=== PATIENT | female | born 1965 | race Caucasian/White ===

== ENCOUNTER 2020-08-18 18:54 | Emergency (ER) | payer MEDICAID ==
[~2020-08-18] VITALS: Ht 149.9 cm; Wt 63.6 kg
[2020-08-18 20:22] LABS: BASOPHILS % (AUTO) 0.4 % (0.0-2.0); EOSINOPHILS % (AUTO) 1.9 % (1.0-6.0); HEMATOCRIT 40.4 % (36-46); HEMOGLOBIN 13.7 g/dL (12.0-16.0); LYMPHOCYTES % (AUTO) 31.6 % (22.0-44.0); MEAN CORPUSCULAR HEMOGLOBIN 31.9 pg (26.0-34.0); MEAN CORPUSCULAR HGB CONC 33.9 G/dL (31.0-37.0); MEAN CORPUSCULAR VOLUME 94 fL (80-100); MONOCYTES # (AUTO) 0.5 K/uL (0.1-1.0); MONOCYTES % (AUTO) 8.5 % (2.0-9.0); NEUTROPHILS # (AUTO) 3.6 K/uL (1.8-7.7); NEUTROPHILS % (AUTO) 57.6 % (40.0-70.0); PLATELET COUNT (AUTO) 322 K/uL (150-450); RED BLOOD CELL COUNT(AUTO) 4.29 MIL/uL (4.00-5.20); RED CELL DISTRIBUTION WIDTH 13.5 % (11.5-14.5)
[2020-08-18 20:34] LABS: ANION GAP 7 mmol/L (8-16); CALCIUM, TOTAL 9.1 mg/dL (8.8-10.5); CARBON DIOXIDE 29 mmol/L (22-29); CHLORIDE 107 mmol/L (98-107); CREATININE 0.78 mg/dL (0.60-1.30); GLOMERULAR FILTR. RATE CALC > 60 mL/min (>60); GLUCOSE,RANDOM 95 mg/dL (70-110); POTASSIUM 4.6 mmol/L (3.5-5.1); SODIUM SERUM 143 mmol/L (136-145); UREA NITROGEN, BLOOD 15 mg/dL (7-18)
[2020-08-18 20:55] LABS: ALANINE AMINOTRANSFERASE 28 U/L (12-78); ALBUMIN 3.1 g/dL (3.4-5.0); ALKALINE PHOSPHATASE 108 U/L (46-116); ASPARTATE AMINOTRANSFERASE 21 U/L (15-37); BILIRUBIN,TOTAL 0.1 mg/dL (0.1-1.0); HCG,QUANTITATIVE 2 mIU/mL (0-6); TOTAL PROTEIN, SERUM 7.5 g/dL (6.4-8.2)
[2020-08-18 21:12] LABS: AMPHET/METH SCREEN,URINE POSITIVE (NEGATIVE); BARBITURATE SCREEN, URINE NEGATIVE (NEGATIVE); BENZODIAZEPINES SCREEN,URINE NEGATIVE (NEGATIVE); CANNABINOID SCREEN,URINE NEGATIVE (NEGATIVE); COCAINE SCREEN,URINE NEGATIVE (NEGATIVE); METHADONE SCREEN, URINE NEGATIVE (NEGATIVE); OPIATE SCREEN,URINE NEGATIVE (NEGATIVE); PHENCYCLIDINE SCREEN,URINE NEGATIVE (NEGATIVE)
[2020-08-18 22:15] VITALS: BP 122/70
== END 2020-08-18 23:19 | disposition home or self-care (01) ==
LOC: EMS 18:55
DX: F15.10 Other stimulant abuse, uncomplicated (principal)
CPT/HCPCS: 36415; 80053; 80307; 84702; 85025; 99283; G0480

== ENCOUNTER 2022-04-30 03:59 | Inpatient (IN) | payer MEDICAID ==
[~2022-04-30] VITALS: Ht 147.3 cm; Wt 53.6 kg
[2022-04-30 05:11] LABS: BASOPHILS % (AUTO) 0.7 % (0.0-2.0); EOSINOPHILS % (AUTO) 1.5 % (1.0-6.0); HEMATOCRIT 38.1 % (36-46); LYMPHOCYTES # (AUTO) 1.6 K/uL (1.0-4.8); MEAN CORPUSCULAR HEMOGLOBIN 30.9 pg (26.0-34.0); MEAN CORPUSCULAR VOLUME 91 fL (80-100); MONOCYTES # (AUTO) 0.5 K/uL (0.1-1.0); MONOCYTES % (AUTO) 7.4 % (2.0-9.0); NEUTROPHILS # (AUTO) 4.2 K/uL (1.8-7.7); NEUTROPHILS % (AUTO) 65.4 % (40.0-70.0); PLATELET COUNT (AUTO) 402 K/uL (150-450); RED BLOOD CELL COUNT(AUTO) 4.21 MIL/uL (4.00-5.20); RED CELL DISTRIBUTION WIDTH 13.9 % (11.5-14.5)
[2022-04-30 05:22] LABS: ANION GAP 7 mmol/L (8-16); CALCIUM, TOTAL 9.3 mg/dL (8.8-10.5); CARBON DIOXIDE 29 mmol/L (22-29); CHLORIDE 102 mmol/L (98-107); GLUCOSE,RANDOM 95 mg/dL (70-110); POTASSIUM 3.9 mmol/L (3.5-5.1); SODIUM SERUM 138 mmol/L (136-145); UREA NITROGEN, BLOOD 13 mg/dL (7-18)
[2022-04-30 05:24] LABS: GLOMERULAR FILTR. RATE CALC > 60 mL/min (>60)
[2022-04-30 05:33] LABS: ALANINE AMINOTRANSFERASE 29 U/L (12-78); ALBUMIN 3.6 g/dL (3.4-5.0); ASPARTATE AMINOTRANSFERASE 21 U/L (15-37); BILIRUBIN,TOTAL 0.4 mg/dL (0.1-1.0); HCG,QUANTITATIVE 1 mIU/mL (0-6); TOTAL PROTEIN, SERUM 7.8 g/dL (6.4-8.2)
[2022-04-30 05:45] LABS: ALKALINE PHOSPHATASE 99 U/L (46-116)
[2022-04-30 05:48] LABS: COVID AG,FIA SOURCE NASOPHARYNGEAL
[2022-04-30] MEDS ORDERED: HALOPERIDOL 5 MG TABLET PO ONE (09:00)
[2022-04-30] MEDS ORDERED: HALOPERIDOL LACTATE 5 MG/ML VIAL IM ONE (09:00)
[2022-04-30] MEDS ORDERED: DIAZEPAM 5 MG/ML 2 ML SYRINGE IM ONE (09:00)
[2022-04-30] MEDS ORDERED: DiphenhydrAMINE HCL 50 MG/ML VIAL IM ONE (09:00)
[2022-04-30] MEDS ORDERED: DiphenhydrAMINE HCL 25 MG CAPSULE PO ONE (09:00)
[2022-04-30] MEDS ORDERED: LORazepam 2 MG TABLET PO PRN (09:15)
[2022-04-30] MEDS ORDERED: ZOLPIDEM TARTRATE 10 MG TABLET PO PRN (09:15)
[2022-04-30] MEDS ORDERED: HALOPERIDOL 5 MG TABLET PO PRN (09:15)
[2022-04-30 20:22] VITALS: BP 104/64
[2022-05-01 08:00] VITALS: BP 110/70
[2022-05-01 21:01] VITALS: BP 101/63
[2022-05-01] MEDS ORDERED: MAG HYDROX/AL HYDROX/SIMETH ES 30 ML SUSPENSION UDCUP PO PRN (23:00)
[2022-05-01] MEDS ORDERED: DOCUSATE SODIUM 100 MG CAPSULE PO PRN (23:00)
[2022-05-01] MEDS ORDERED: ALBUTEROL SULFATE HFA 90 MCG/PUFF 8 GM INHALER IH PRN (23:00)
[2022-05-01] MEDS ORDERED: OMEPRAZOLE 20 MG CAPSULE PO PRN (23:00)
[2022-05-01] MEDS ORDERED: MAGNESIUM HYDROXIDE SUSPENSION 30 ML UDCUP PO PRN (23:00)
[2022-05-01] MEDS ORDERED: BENZOCAINE/MENTHOL LOZENGE PO PRN (23:00)
[2022-05-01] MEDS ORDERED: IBUPROFEN 600 MG TABLET PO PRN (23:00)
[2022-05-01] MEDS ORDERED: ONDANSETRON HCL 4 MG TABLET PO PRN (23:00)
[2022-05-01] MEDS ORDERED: LOPERAMIDE HCL 2 MG CAPSULE PO PRN (23:00)
[2022-05-01] MEDS ORDERED: PETROLATUM,WHITE 28 GM JELLY TP PRN (23:00)
[2022-05-01] MEDS ORDERED: ACETAMINOPHEN 325 MG TABLET PO PRN (23:00)
[2022-05-01] MEDS ORDERED: BACITRACIN 28 GM OINTMENT TP PRN (23:00)
[2022-05-01] MEDS ORDERED: CloNIDine HCL 0.1 MG TABLET PO PRN (23:00)
[2022-05-02] MEDS: DIVALPROEX SODIUM 500 MG DR TABLET PO SCH ×2 (08:51→17:00)
[2022-05-02] MEDS: LITHIUM CARBONATE 300 MG CAPSULE PO SCH ×2 (08:51→17:00)
[2022-05-02] MEDS: RisperiDONE 3 MG TABLET PO SCH ×2 (08:51→17:00)
[2022-05-02 20:29] VITALS: BP 114/67
[2022-05-03] MEDS: RisperiDONE 3 MG TABLET PO SCH ×2 (08:44→17:05)
[2022-05-03] MEDS: LITHIUM CARBONATE 300 MG CAPSULE PO SCH ×2 (08:44→17:05)
[2022-05-03] MEDS: DIVALPROEX SODIUM 500 MG DR TABLET PO SCH ×2 (08:44→17:00)
[2022-05-03 09:49] VITALS: BP 95/64
[2022-05-04 00:30] VITALS: BP 117/96
[2022-05-04] MEDS: LITHIUM CARBONATE 300 MG CAPSULE PO SCH ×2 (09:00→17:00)
[2022-05-04] MEDS: DIVALPROEX SODIUM 500 MG DR TABLET PO SCH ×2 (09:00→17:00)
[2022-05-04] MEDS: RisperiDONE 3 MG TABLET PO SCH ×2 (09:00→17:00)
[2022-05-04 09:28] VITALS: BP 146/86
[2022-05-05 00:55] VITALS: BP 127/82
[2022-05-05] MEDS: RisperiDONE 3 MG TABLET PO SCH ×2 (09:00→17:00)
[2022-05-05] MEDS: DIVALPROEX SODIUM 500 MG DR TABLET PO SCH ×2 (09:00→17:00)
[2022-05-05] MEDS: LITHIUM CARBONATE 300 MG CAPSULE PO SCH ×2 (09:00→17:00)
[2022-05-05 14:40] VITALS: BP 110/62
[2022-05-05 20:26] VITALS: BP 130/75
[2022-05-06 07:37] LABS: LITHIUM < 0.20 mmol/L (0.60-1.20)
[2022-05-06 07:51] LABS: VALPROIC ACID < 3 mcg/mL (50-100)
[2022-05-06 07:58] VITALS: BP 110/70
[2022-05-06 08:00] VITALS: BP 110/70
[2022-05-06] MEDS: LITHIUM CARBONATE 300 MG CAPSULE PO SCH ×2 (08:33→17:00)
[2022-05-06] MEDS: DIVALPROEX SODIUM 500 MG DR TABLET PO SCH ×2 (08:33→17:00)
[2022-05-06] MEDS: RisperiDONE 3 MG TABLET PO SCH ×2 (08:34→17:00)
[2022-05-06 20:20] VITALS: BP 134/78
[2022-05-07 08:24] VITALS: BP 128/72
[2022-05-07] MEDS: RisperiDONE 3 MG TABLET PO SCH ×2 (09:00→17:00)
[2022-05-07] MEDS: LITHIUM CARBONATE 300 MG CAPSULE PO SCH ×2 (09:00→17:00)
[2022-05-07] MEDS: DIVALPROEX SODIUM 500 MG DR TABLET PO SCH ×2 (09:00→17:00)
[2022-05-07 20:33] VITALS: BP 109/75
[2022-05-08 08:25] VITALS: BP 110/57
[2022-05-08] MEDS: RisperiDONE 3 MG TABLET PO SCH ×2 (08:50→16:31)
[2022-05-08] MEDS: LITHIUM CARBONATE 300 MG CAPSULE PO SCH ×2 (08:50→16:31)
[2022-05-08] MEDS: DIVALPROEX SODIUM 500 MG DR TABLET PO SCH ×2 (08:50→16:31)
[2022-05-08 09:36] LABS: GLUCOMETER DEV NAME(LOC) POC.BV
[2022-05-08 20:44] VITALS: BP 117/68
[2022-05-09 08:27] VITALS: BP 112/62
[2022-05-09] MEDS: RisperiDONE 3 MG TABLET PO SCH ×2 (08:45→17:00)
[2022-05-09] MEDS: DIVALPROEX SODIUM 500 MG DR TABLET PO SCH ×2 (08:45→17:00)
[2022-05-09] MEDS: LITHIUM CARBONATE 300 MG CAPSULE PO SCH ×2 (08:45→17:00)
[2022-05-09 20:54] VITALS: BP 123/82
[2022-05-10 08:22] VITALS: BP 106/74
[2022-05-10] MEDS: LITHIUM CARBONATE 300 MG CAPSULE PO SCH ×2 (08:27→16:45)
[2022-05-10] MEDS: RisperiDONE 3 MG TABLET PO SCH ×2 (08:27→16:45)
[2022-05-10] MEDS: DIVALPROEX SODIUM 500 MG DR TABLET PO SCH ×2 (08:27→16:45)
[2022-05-10 20:29] VITALS: BP 134/77
[2022-05-11] MEDS: LITHIUM CARBONATE 300 MG CAPSULE PO SCH ×2 (09:00→17:00)
[2022-05-11] MEDS: DIVALPROEX SODIUM 500 MG DR TABLET PO SCH ×2 (09:00→17:00)
[2022-05-11] MEDS: RisperiDONE 3 MG TABLET PO SCH ×2 (09:00→17:00)
[2022-05-11 09:26] VITALS: BP 100/63
[2022-05-11 19:46] LABS: GLUCOMETER DEV NAME(LOC) POC.BV
[2022-05-11 20:19] VITALS: BP 129/68
[2022-05-11] MEDS ORDERED: RISP3TAB63 PO (21:57)
[2022-05-12 08:41] VITALS: BP 116/61
[2022-05-12] MEDS: RisperiDONE 3 MG TABLET PO SCH (09:00)
[2022-05-12] MEDS: DIVALPROEX SODIUM 500 MG DR TABLET PO SCH (09:00)
[2022-05-12] MEDS: LITHIUM CARBONATE 300 MG CAPSULE PO SCH (09:00)
== END 2022-05-12 09:45 | disposition home or self-care (01) | DRG 750 ==
LOC: EMS 04:00 → B3A 15:01 → B2S 05-06 22:04
PROVIDERS: ADMIT Psychiatry & Neurology Psychiatry; ATTEND Psychiatry & Neurology Psychiatry
DX: F25.9 Schizoaffective disorder, unspecified (principal); F15.10 Other stimulant abuse, uncomplicated; K21.9 Gastro-esophageal reflux disease without esophagitis; F41.9 Anxiety disorder, unspecified; G47.00 Insomnia, unspecified; K59.00 Constipation, unspecified; Z20.822 Contact with and (suspected) exposure to COVID-19; F17.200 Nicotine dependence, unspecified, uncomplicated; J44.9 Chronic obstructive pulmonary disease, unspecified; Z59.00 Homelessness unspecified; Z28.310 Unvaccinated for COVID-19
CPT/HCPCS: 80053; 80164; 80178; 84702; 85025; 99285; G0480; J1200; J1630

== ENCOUNTER 2022-06-01 08:06 | Inpatient (IN) | payer MEDICAID ==
[~2022-06-01] VITALS: Ht 157.5 cm; Wt 62.7 kg
[~2022-06-01 08:06] MED LIST: RISP3TAB63 PO
[2022-06-01 11:40] LABS: BASOPHILS % (AUTO) 0.6 % (0.0-2.0); EOSINOPHILS % (AUTO) 1.1 % (1.0-6.0); HEMATOCRIT 40.4 % (36-46); HEMOGLOBIN 13.3 g/dL (12.0-16.0); LYMPHOCYTES # (AUTO) 1.7 K/uL (1.0-4.8); LYMPHOCYTES % (AUTO) 27.1 % (22.0-44.0); MEAN CORPUSCULAR HEMOGLOBIN 30.7 pg (26.0-34.0); MEAN CORPUSCULAR HGB CONC 32.8 G/dL (31.0-37.0); MEAN CORPUSCULAR VOLUME 93 fL (80-100); MONOCYTES # (AUTO) 0.5 K/uL (0.1-1.0); MONOCYTES % (AUTO) 7.3 % (2.0-9.0); NEUTROPHILS % (AUTO) 63.9 % (40.0-70.0); PLATELET COUNT (AUTO) 377 K/uL (150-450); RED BLOOD CELL COUNT(AUTO) 4.33 MIL/uL (4.00-5.20); RED CELL DISTRIBUTION WIDTH 14.6 % (11.5-14.5)
[2022-06-01 11:54] LABS: ANION GAP 5 mmol/L (8-16); CALCIUM, TOTAL 9.1 mg/dL (8.8-10.5); CARBON DIOXIDE 32 mmol/L (22-29); CHLORIDE 103 mmol/L (98-107); CREATININE 0.81 mg/dL (0.60-1.30); GLUCOSE,RANDOM 88 mg/dL (70-110); POTASSIUM 3.4 mmol/L (3.5-5.1); SODIUM SERUM 140 mmol/L (136-145); UREA NITROGEN, BLOOD 21 mg/dL (7-18)
[2022-06-01 11:55] LABS: GLOMERULAR FILTR. RATE CALC > 60 mL/min (>60)
[2022-06-01 12:00] LABS: ALANINE AMINOTRANSFERASE 31 U/L (12-78); ALBUMIN 3.8 g/dL (3.4-5.0); ALKALINE PHOSPHATASE 101 U/L (46-116); ASPARTATE AMINOTRANSFERASE 33 U/L (15-37); BILIRUBIN,TOTAL 0.6 mg/dL (0.1-1.0); TOTAL PROTEIN, SERUM 7.9 g/dL (6.4-8.2)
[2022-06-01] MEDS ORDERED: ZOLPIDEM TARTRATE 10 MG TABLET PO PRN (13:45)
[2022-06-01] MEDS ORDERED: HALOPERIDOL 5 MG TABLET PO PRN (13:45)
[2022-06-01 15:47] LABS: COVID AG,FIA SOURCE NASAL SWAB
[2022-06-02] MEDS ORDERED: LOPERAMIDE HCL 2 MG CAPSULE PO PRN (06:00)
[2022-06-02] MEDS ORDERED: ALBUTEROL SULFATE HFA 90 MCG/PUFF 8 GM INHALER IH PRN (06:00)
[2022-06-02] MEDS ORDERED: BENZOCAINE/MENTHOL LOZENGE PO PRN (06:00)
[2022-06-02] MEDS ORDERED: CloNIDine HCL 0.1 MG TABLET PO PRN (06:00)
[2022-06-02] MEDS ORDERED: DOCUSATE SODIUM 100 MG CAPSULE PO PRN (06:00)
[2022-06-02] MEDS ORDERED: IBUPROFEN 600 MG TABLET PO PRN (06:00)
[2022-06-02] MEDS ORDERED: MAG HYDROX/AL HYDROX/SIMETH ES 30 ML SUSPENSION UDCUP PO PRN (06:00)
[2022-06-02] MEDS ORDERED: ACETAMINOPHEN 325 MG TABLET PO PRN (06:00)
[2022-06-02] MEDS ORDERED: MAGNESIUM HYDROXIDE SUSPENSION 30 ML UDCUP PO PRN (06:00)
[2022-06-02] MEDS ORDERED: POTASSIUM CHLORIDE 20 MEQ ER TABLET PO ONE (06:00)
[2022-06-02] MEDS ORDERED: BACITRACIN 28 GM OINTMENT TP PRN (06:00)
[2022-06-02] MEDS ORDERED: ONDANSETRON HCL 4 MG TABLET PO PRN (06:00)
[2022-06-02] MEDS ORDERED: OMEPRAZOLE 20 MG CAPSULE PO PRN (06:00)
[2022-06-02] MEDS ORDERED: PETROLATUM,WHITE 28 GM JELLY TP PRN (06:00)
[2022-06-02 09:41] VITALS: BP 112/60
[2022-06-02 13:41] VITALS: BP 117/66
[2022-06-02] MEDS: RisperiDONE 3 MG TABLET PO SCH (17:00)
[2022-06-02] MEDS: DIVALPROEX SODIUM 500 MG DR TABLET PO SCH (17:00)
[2022-06-02] MEDS: LITHIUM CARBONATE 300 MG CAPSULE PO SCH (17:00)
[2022-06-02 17:41] VITALS: BP 100/55
[2022-06-03] MEDS: LORazepam 2 MG TABLET PO PRN (00:40)
[2022-06-03 07:56] LABS: CHOL/HDL RATIO 3.4 (3.9-5.7); POTASSIUM 4.2 mmol/L (3.5-5.1); THYROID STIMULATING HORMONE 0.85 uIU/mL (0.36-3.74)
[2022-06-03] MEDS: LITHIUM CARBONATE 300 MG CAPSULE PO SCH ×2 (08:08→17:00)
[2022-06-03] MEDS: DIVALPROEX SODIUM 500 MG DR TABLET PO SCH ×2 (08:08→17:00)
[2022-06-03] MEDS: RisperiDONE 3 MG TABLET PO SCH ×2 (08:08→17:00)
[2022-06-03 08:15] VITALS: BP 127/92
[2022-06-03 16:29] VITALS: BP 128/82
[2022-06-04] MEDS: LITHIUM CARBONATE 300 MG CAPSULE PO SCH ×2 (08:12→17:00)
[2022-06-04] MEDS: DIVALPROEX SODIUM 500 MG DR TABLET PO SCH ×2 (08:12→17:00)
[2022-06-04] MEDS: RisperiDONE 3 MG TABLET PO SCH ×2 (08:13→17:00)
[2022-06-04 10:12] VITALS: BP 127/70
[2022-06-04] MEDS ORDERED: LORazepam 2 MG/ML VIAL ONE (13:35)
[2022-06-04] MEDS ORDERED: DiphenhydrAMINE HCL 50 MG/ML VIAL ONE (13:36)
[2022-06-04] MEDS ORDERED: HALOPERIDOL LACTATE 5 MG/ML VIAL ONE (13:36)
[2022-06-04] MEDS ORDERED: HALOPERIDOL LACTATE 5 MG/ML VIAL IM ONE (14:15)
[2022-06-04] MEDS ORDERED: LORazepam 2 MG/ML VIAL IM ONE (14:15)
[2022-06-04] MEDS ORDERED: DiphenhydrAMINE HCL 50 MG/ML VIAL IM ONE (14:15)
[2022-06-05] MEDS: LITHIUM CARBONATE 300 MG CAPSULE PO SCH ×2 (08:34→16:51)
[2022-06-05] MEDS: DIVALPROEX SODIUM 500 MG DR TABLET PO SCH ×2 (08:34→16:50)
[2022-06-05] MEDS: RisperiDONE 3 MG TABLET PO SCH ×2 (08:34→16:51)
[2022-06-05 09:00] VITALS: BP 98/58
[2022-06-05] MEDS ORDERED: LORazepam 2 MG/ML VIAL ONE (16:36)
[2022-06-05] MEDS ORDERED: DiphenhydrAMINE HCL 50 MG/ML VIAL ONE (16:36)
[2022-06-05] MEDS ORDERED: HALOPERIDOL LACTATE 5 MG/ML VIAL ONE (16:37)
[2022-06-05] MEDS ORDERED: DiphenhydrAMINE HCL 50 MG/ML VIAL IM ONE (16:45)
[2022-06-05] MEDS ORDERED: HALOPERIDOL LACTATE 5 MG/ML VIAL IM ONE (16:45)
[2022-06-05] MEDS ORDERED: LORazepam 2 MG/ML VIAL IM ONE (16:45)
[2022-06-06] MEDS: LITHIUM CARBONATE 300 MG CAPSULE PO SCH ×2 (08:36→16:41)
[2022-06-06] MEDS: RisperiDONE 3 MG TABLET PO SCH ×2 (08:36→16:41)
[2022-06-06] MEDS: DIVALPROEX SODIUM 500 MG DR TABLET PO SCH ×2 (08:36→16:41)
[2022-06-06 16:32] VITALS: BP 118/75
[2022-06-07 06:38] LABS: COVID AG,FIA SOURCE NASAL SWAB
[2022-06-07] MEDS: DIVALPROEX SODIUM 500 MG DR TABLET PO SCH ×2 (08:36→17:00)
[2022-06-07] MEDS: RisperiDONE 3 MG TABLET PO SCH ×2 (08:36→17:00)
[2022-06-07] MEDS: LITHIUM CARBONATE 300 MG CAPSULE PO SCH ×2 (08:36→17:00)
[2022-06-07 08:57] LABS: LITHIUM < 0.20 mmol/L (0.60-1.20)
[2022-06-07 09:01] LABS: VALPROIC ACID < 3 mcg/mL (50-100)
[2022-06-07 09:27] VITALS: BP 138/83
[2022-06-07 16:12] VITALS: BP 129/85
[2022-06-07] MEDS: LORazepam 2 MG TABLET PO PRN (19:50)
[2022-06-08 08:21] VITALS: BP 114/80
[2022-06-08] MEDS: RisperiDONE 3 MG TABLET PO SCH ×2 (09:00→16:06)
[2022-06-08] MEDS: DIVALPROEX SODIUM 500 MG DR TABLET PO SCH ×2 (09:00→16:05)
[2022-06-08] MEDS: LITHIUM CARBONATE 300 MG CAPSULE PO SCH ×2 (09:00→16:05)
[2022-06-08 16:09] VITALS: BP 120/74
[2022-06-09] MEDS: DIVALPROEX SODIUM 500 MG DR TABLET PO SCH ×2 (08:33→16:57)
[2022-06-09] MEDS: LITHIUM CARBONATE 300 MG CAPSULE PO SCH ×2 (08:33→16:57)
[2022-06-09] MEDS: RisperiDONE 3 MG TABLET PO SCH ×2 (08:34→16:58)
[2022-06-09 08:55] VITALS: BP 108/68
[2022-06-09 16:12] VITALS: BP 112/70
[2022-06-10 08:00] VITALS: BP 132/83
[2022-06-10] MEDS: RisperiDONE 3 MG TABLET PO SCH ×2 (08:04→17:35)
[2022-06-10] MEDS: LITHIUM CARBONATE 300 MG CAPSULE PO SCH ×2 (08:04→17:35)
[2022-06-10] MEDS: DIVALPROEX SODIUM 500 MG DR TABLET PO SCH ×2 (08:05→17:35)
[2022-06-10 16:22] VITALS: BP 97/59
[2022-06-10 20:15] VITALS: BP 98/60
[2022-06-11 09:12] VITALS: BP 121/79
[2022-06-11] MEDS: LITHIUM CARBONATE 300 MG CAPSULE PO SCH ×2 (09:28→17:40)
[2022-06-11] MEDS: RisperiDONE 3 MG TABLET PO SCH ×2 (09:28→17:40)
[2022-06-11] MEDS: DIVALPROEX SODIUM 500 MG DR TABLET PO SCH ×2 (09:28→17:40)
[2022-06-11 16:11] VITALS: BP 115/65
[2022-06-12] MEDS: RisperiDONE 3 MG TABLET PO SCH ×2 (09:01→17:05)
[2022-06-12] MEDS: DIVALPROEX SODIUM 500 MG DR TABLET PO SCH ×2 (09:01→17:05)
[2022-06-12] MEDS: LITHIUM CARBONATE 300 MG CAPSULE PO SCH ×2 (09:01→17:05)
[2022-06-12 10:15] VITALS: BP 103/62
[2022-06-12 16:37] VITALS: BP 103/68
[2022-06-13] MEDS: DIVALPROEX SODIUM 500 MG DR TABLET PO SCH ×2 (07:33→16:13)
[2022-06-13] MEDS: RisperiDONE 3 MG TABLET PO SCH ×2 (07:33→16:13)
[2022-06-13] MEDS: LITHIUM CARBONATE 300 MG CAPSULE PO SCH ×2 (07:33→16:13)
[2022-06-13 09:06] VITALS: BP 106/56
[2022-06-13 16:14] VITALS: BP 124/70
[2022-06-14 01:11] LABS: COVID AG,FIA SOURCE NASAL SWAB
[2022-06-14] MEDS: LITHIUM CARBONATE 300 MG CAPSULE PO SCH ×2 (07:58→16:06)
[2022-06-14] MEDS: DIVALPROEX SODIUM 500 MG DR TABLET PO SCH ×2 (07:58→16:06)
[2022-06-14] MEDS: RisperiDONE 3 MG TABLET PO SCH ×2 (07:59→16:06)
[2022-06-14 08:44] VITALS: BP 112/72
[2022-06-14 16:40] VITALS: BP 123/77
[2022-06-15] MEDS: DIVALPROEX SODIUM 500 MG DR TABLET PO SCH ×2 (08:39→16:22)
[2022-06-15] MEDS: RisperiDONE 3 MG TABLET PO SCH ×2 (08:39→16:22)
[2022-06-15] MEDS: LITHIUM CARBONATE 300 MG CAPSULE PO SCH ×2 (08:39→16:22)
[2022-06-15 08:53] VITALS: BP 99/61
[2022-06-15 16:00] VITALS: BP 95/55
[2022-06-16 08:17] VITALS: BP 115/70
[2022-06-16] MEDS: LITHIUM CARBONATE 300 MG CAPSULE PO SCH ×2 (08:21→15:43)
[2022-06-16] MEDS: RisperiDONE 3 MG TABLET PO SCH ×2 (08:21→15:43)
[2022-06-16] MEDS: DIVALPROEX SODIUM 500 MG DR TABLET PO SCH ×2 (08:21→15:43)
[2022-06-16 16:10] VITALS: BP 112/82
[2022-06-17 08:23] VITALS: BP 109/73
[2022-06-17] MEDS: DIVALPROEX SODIUM 500 MG DR TABLET PO SCH ×2 (10:01→17:48)
[2022-06-17] MEDS: RisperiDONE 3 MG TABLET PO SCH ×2 (10:01→17:48)
[2022-06-17] MEDS: LITHIUM CARBONATE 300 MG CAPSULE PO SCH ×2 (10:01→17:48)
[2022-06-17 16:20] VITALS: BP 111/79
[2022-06-18 08:18] VITALS: BP 112/55
[2022-06-18] MEDS: RisperiDONE 3 MG TABLET PO SCH ×2 (10:10→16:05)
[2022-06-18] MEDS: DIVALPROEX SODIUM 500 MG DR TABLET PO SCH ×2 (10:10→16:05)
[2022-06-18] MEDS: LITHIUM CARBONATE 300 MG CAPSULE PO SCH ×2 (10:10→16:05)
[2022-06-18 16:09] VITALS: BP 108/65
[2022-06-19] MEDS: RisperiDONE 3 MG TABLET PO SCH ×2 (08:34→16:24)
[2022-06-19] MEDS: LITHIUM CARBONATE 300 MG CAPSULE PO SCH ×2 (08:34→16:23)
[2022-06-19] MEDS: DIVALPROEX SODIUM 500 MG DR TABLET PO SCH ×2 (08:34→16:23)
[2022-06-19 09:57] VITALS: BP 109/63
[2022-06-19 16:51] VITALS: BP 108/60
[2022-06-20] MEDS: RisperiDONE 3 MG TABLET PO SCH ×2 (07:59→15:48)
[2022-06-20] MEDS: LITHIUM CARBONATE 300 MG CAPSULE PO SCH ×2 (07:59→15:48)
[2022-06-20] MEDS: DIVALPROEX SODIUM 500 MG DR TABLET PO SCH ×2 (07:59→15:48)
[2022-06-20 08:44] VITALS: BP 111/60
[2022-06-20 16:04] VITALS: BP 107/75
[2022-06-20 18:09] LABS: LITHIUM 0.66 mmol/L (0.60-1.20)
[2022-06-21 06:52] LABS: BASOPHILS % (AUTO) 0.5 % (0.0-2.0); EOSINOPHILS % (AUTO) 3.3 % (1.0-6.0); HEMATOCRIT 37.5 % (36-46); HEMOGLOBIN 12.4 g/dL (12.0-16.0); LYMPHOCYTES # (AUTO) 1.7 K/uL (1.0-4.8); LYMPHOCYTES % (AUTO) 26.8 % (22.0-44.0); MEAN CORPUSCULAR HEMOGLOBIN 31.4 pg (26.0-34.0); MEAN CORPUSCULAR VOLUME 95 fL (80-100); MONOCYTES # (AUTO) 0.7 K/uL (0.1-1.0); MONOCYTES % (AUTO) 11.4 % (2.0-9.0); NEUTROPHILS # (AUTO) 3.6 K/uL (1.8-7.7); PLATELET COUNT (AUTO) 430 K/uL (150-450); RED BLOOD CELL COUNT(AUTO) 3.94 MIL/uL (4.00-5.20); RED CELL DISTRIBUTION WIDTH 15.4 % (11.5-14.5)
[2022-06-21 06:55] LABS: COVID AG,FIA SOURCE NASAL SWAB
[2022-06-21 07:10] LABS: ALANINE AMINOTRANSFERASE 33 U/L (12-78); ALKALINE PHOSPHATASE 82 U/L (46-116); ANION GAP 6 mmol/L (8-16); ASPARTATE AMINOTRANSFERASE 20 U/L (15-37); BILIRUBIN,TOTAL 0.2 mg/dL (0.1-1.0); CALCIUM, TOTAL 8.9 mg/dL (8.8-10.5); CARBON DIOXIDE 28 mmol/L (22-29); CHLORIDE 105 mmol/L (98-107); CREATININE 0.74 mg/dL (0.60-1.30); GLUCOSE,RANDOM 90 mg/dL (70-110); PHOSPHORUS 4.8 mg/dL (2.5-4.9); POTASSIUM 4.5 mmol/L (3.5-5.1); SODIUM SERUM 139 mmol/L (136-145); TOTAL PROTEIN, SERUM 6.9 g/dL (6.4-8.2); UREA NITROGEN, BLOOD 21 mg/dL (7-18)
[2022-06-21 07:23] LABS: GLOMERULAR FILTR. RATE CALC > 60 mL/min (>60)
[2022-06-21] MEDS: DIVALPROEX SODIUM 500 MG DR TABLET PO SCH ×2 (08:19→16:10)
[2022-06-21] MEDS: LITHIUM CARBONATE 300 MG CAPSULE PO SCH ×2 (08:19→16:10)
[2022-06-21] MEDS: RisperiDONE 3 MG TABLET PO SCH ×2 (08:19→16:10)
[2022-06-21 08:30] VITALS: BP 119/80
[2022-06-21 16:07] VITALS: BP 133/69
[2022-06-22 08:10] VITALS: BP 106/69
[2022-06-22] MEDS: RisperiDONE 3 MG TABLET PO SCH ×2 (08:16→16:24)
[2022-06-22] MEDS: LITHIUM CARBONATE 300 MG CAPSULE PO SCH ×2 (08:16→16:24)
[2022-06-22] MEDS: DIVALPROEX SODIUM 500 MG DR TABLET PO SCH ×2 (08:16→16:24)
[2022-06-22 16:02] VITALS: BP 124/84
[2022-06-23] MEDS: LITHIUM CARBONATE 300 MG CAPSULE PO SCH ×2 (08:12→16:29)
[2022-06-23] MEDS: DIVALPROEX SODIUM 500 MG DR TABLET PO SCH ×2 (08:12→16:29)
[2022-06-23] MEDS: RisperiDONE 3 MG TABLET PO SCH ×2 (08:12→16:29)
[2022-06-23 08:16] VITALS: BP 117/74
[2022-06-23 17:03] VITALS: BP 109/60
[2022-06-24 08:20] VITALS: BP 111/65
[2022-06-24] MEDS: LITHIUM CARBONATE 300 MG CAPSULE PO SCH ×2 (08:22→17:31)
[2022-06-24] MEDS: DIVALPROEX SODIUM 500 MG DR TABLET PO SCH ×2 (08:22→17:31)
[2022-06-24] MEDS: RisperiDONE 3 MG TABLET PO SCH ×2 (08:22→17:31)
[2022-06-24 16:35] VITALS: BP 105/65
[2022-06-25] MEDS: RisperiDONE 3 MG TABLET PO SCH ×2 (08:12→17:23)
[2022-06-25] MEDS: DIVALPROEX SODIUM 500 MG DR TABLET PO SCH ×2 (08:12→17:23)
[2022-06-25] MEDS: LITHIUM CARBONATE 300 MG CAPSULE PO SCH ×2 (08:13→17:23)
[2022-06-25 08:30] VITALS: BP 107/78
[2022-06-25 16:00] VITALS: BP 109/65
[2022-06-26 08:00] VITALS: BP 101/67
[2022-06-26] MEDS: LITHIUM CARBONATE 300 MG CAPSULE PO SCH ×2 (08:26→16:07)
[2022-06-26] MEDS: DIVALPROEX SODIUM 500 MG DR TABLET PO SCH ×2 (08:26→16:07)
[2022-06-26] MEDS: RisperiDONE 3 MG TABLET PO SCH ×2 (08:26→16:08)
[2022-06-26 11:40] LABS: COVID AG,FIA SOURCE NASOPHARYNGEAL
[2022-06-26] MEDS ORDERED: DIVA-112 PO (13:17)
[2022-06-26] MEDS ORDERED: LITH300C3 PO (13:17)
[2022-06-26] MEDS ORDERED: RISP3TAB63 PO (13:17)
[2022-06-26 16:00] VITALS: BP 133/66
[2022-06-27] MEDS: DIVALPROEX SODIUM 500 MG DR TABLET PO SCH (08:06)
[2022-06-27] MEDS: RisperiDONE 3 MG TABLET PO SCH (08:06)
[2022-06-27] MEDS: LITHIUM CARBONATE 300 MG CAPSULE PO SCH (08:06)
[2022-06-27 09:47] VITALS: BP 131/68
== END 2022-06-27 12:20 | disposition home or self-care (01) | DRG 750 ==
LOC: EMS 08:07 → 3EC 20:17
PROVIDERS: ADMIT Psychiatry & Neurology Psychiatry; ATTEND Psychiatry & Neurology Psychiatry
DX: F25.9 Schizoaffective disorder, unspecified (principal); R45.850 Homicidal ideations; F15.10 Other stimulant abuse, uncomplicated; J44.9 Chronic obstructive pulmonary disease, unspecified; Z20.822 Contact with and (suspected) exposure to COVID-19; K21.9 Gastro-esophageal reflux disease without esophagitis; G47.00 Insomnia, unspecified; K59.00 Constipation, unspecified; F41.9 Anxiety disorder, unspecified; Z79.899 Other long term (current) drug therapy; Z59.00 Homelessness unspecified; Z87.891 Personal history of nicotine dependence
CPT/HCPCS: 80053; 80061; 80164; 80178; 83735; 84100; 84132; 84443; 85025; 87081; 99285; G0480; J1200; J1630; J2060